=== PATIENT | male | born 1960 | race Caucasian/White ===

== ENCOUNTER → 2020-11-17 | Outpatient (CLI) | payer BC ==
[2020-11-17 15:19] LABS: Appearance,Urine Clear (Clear); Bilirubin,Urine Negative (Negative); Blood,Urine Negative (Negative); Color,Urine Yellow; Glucose,Urine (UA) 4+ (Negative); Ketones,Urine 1+ (Negative); Leukocyte Esterase,Urine Negative (Negative); Nitrite,Urine Negative (Negative); PH, Urine 5.5 (5.0-8.0); Protein,Urine Trace (Negative); Specific Gravity,Urine 1.032 (1.001-1.035); Urobilinogen,Urine <2.0 mg/dL (<2.0)
[2020-11-17 19:35] LABS: Basophils # (A) 0.02 X 10*3/uL (0.00-0.10); Basophils % (A) 0.5 %; Eosinophils # (A) 0 X 10*3/uL (0.04-0.35); Eosinophils % (A) 0 %; HCT 46.3 % (39.6-50.0); HGB 15.6 g/dL (13.0-17.0); Lymphocytes # (A) 0.63 X 10*3/uL (0.90-5.00); Lymphocytes % (A) 15.8 %; MCH 29.8 pg (27.0-32.0); MCHC 33.7 g/dL (32.0-37.0); MCV 88.4 fL (80.0-97.0); Mean Platelet Volume 10.3 fL (9.5-12.2); Monocytes # (A) 0.45 X 10*3/uL (0.20-1.00); Monocytes % (A) 11.3 %; Neutrophils # (A) 2.86 X 10*3/uL (1.80-7.70); Neutrophils % (A) 71.9 %; Platelet Count 151 X 10*3/uL (140-440); RBC 5.24 X 10*6/uL (4.40-5.60); WBC 3.98 X 10*3/uL (4.50-10.00)
[2020-11-18 13:18] LABS: African American GFR (CKD) 95.3 (60.0-200.0); Albumin 4.3 g/dL (3.8-4.9); Albumin/Globulin Ratio 1.55 (1.60-3.17); Anion Gap 20.3 mmol/L (4.00-12.00); BUN/Creat Ratio 15.62 Ratio (12.00-20.00); Blood Urea Nitrogen 15.4 mg/dL (9.0-27.0); Carbon Dioxide 15.5 mmol/L (21.6-31.8); Globulin 2.8 g/dL (1.6-3.3); Non-African American GFR(CKD) 82.3 (60.0-200.0); Potassium 5.2 mmol/L (3.5-5.5); Total Bilirubin 0.5 mg/dL (0.30-1.20); Total Protein 7.1 g/dL (6.2-8.2)
== END | disposition home or self-care (01) ==
LOC: LABWHC1 11:02
PROVIDERS: ATTEND Family Medicine
DX: R53.83 Other fatigue (principal)
CPT/HCPCS: 36415; 80053; 81003; 85025

== ENCOUNTER → 2020-11-17 | Outpatient (CLI) | payer BC ==
--- NOTE | 2020-11-17 12:35 | XR ---
EXAMINATION TYPE: XR chest 2V DATE OF EXAM: 11/17/2020 COMPARISON: 04/02/2013 TECHNIQUE: PA and lateral views submitted. HISTORY: Cough FINDINGS: The lungs are clear and there is no pneumothorax, pleural effusion, or focal pneumonia. 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 No overt failure. Hypertrophic and degenerative change of the spine c orrelate for diffuse idiopathic skeletal hyperostosis. IMPRESSION: 1. No acute process.
== END | disposition home or self-care (01) ==
LOC: RADXRMAIN 12:20
PROVIDERS: ATTEND Family Medicine
DX: R05.9 Cough, unspecified (principal)
CPT/HCPCS: 71046